=== PATIENT | female | born 1955 | race Caucasian/White ===

== ENCOUNTER → 2018-12-25 | Outpatient (REF) | payer OTHER ==
[~2018-12-25] MED LIST: ALPRAZOLAM0.5 MG PO; APAP/CODEINE1 TAB PO; AUGMENTIN875TAB PO; BUSPIRONE7.5 MG PO; CELEBREX50 MG PO; CELEXA40 M1; CIPRO500 MG OR; CODEINE SULF PO; FLEXERIL PO; GNP ALLERGY-D12 HOUR PO; IBUPROFEN600 MG PO; KETOROLAC60 MG/2 ML IJ; LORTAB 10-325 M1 TAB PO; LORTAB 5 OR; LORTAB 5/3255 MG PO; LOTRISONE CREAM15 GM EX; MEDDOSEPAK PO; MELOXICAM7.5 MG PO; MOTRIN800 MG/TAB PO; NAPROSYN500 MG PO; NAPROXEN375 MG PO; NORCO1 TA1 PO; PAROXETINE10 MG PO; PAROXETINE20 MG PO; PAROXETINE30 MG PO; PERCOCET 5/325M1 TAB PO; SEROQUEL50 MG OR; TRAMADOL HCL100 MG PO; TRAMADOL HCL50 MG PO; TYLENOL # 31 TA1 PO; ULTRAM50 MG PO; VISTARIL25 MG PO; XANAX XR0.5 MG PO; XANAX0.5 MG PO; ZANAFLEX4 MG PO
== END | disposition home or self-care (01) | DRG 951 ==
LOC: MAMMO 12-11 11:30
PROVIDERS: ATTEND Nurse Practitioner Family
DX: Z12.31 Encounter for screening mammogram for malignant neoplasm of breast (principal)

== ENCOUNTER 2020-03-05 20:17 | Observation (INO) | payer MEDICARE, OTHER ==
[~2020-03-05] VITALS: Ht 160 cm; Wt 60.4 kg
[~2020-03-05 20:17] MED LIST changes: +ALPRAZOLAM1 MG PO; +HYDROCO/APAP1 T10 PO
--- NOTE | 2020-03-05 20:34 | NUR ---
PT. WITH C/O EPIGASTRIC PAIN STARTING APPROX 30 MIN AGO. PT STATES SHE ALSO BECAME SOB. SKIN WARM AND DRY TO TOUCH, COLOR WNL, RESP. EVEN AND UNLABORED.
--- NOTE | 2020-03-05 20:56 | NUR ---
IV PAIN MED, PO ASA AND PO GI COCKTAIL GIVEN PER MD ORDER.
[2020-03-05 21:16] LABS: IMMATURE GRANULOCYTES 0.2 % (0.0-5.0); MEAN CORPUSCULAR HGB 31.1 pG CALC (26.0-32.0); MEAN CORPUSCULAR HGB CONC 35.2 g/dL CAL (32.0-36.0); NEUT# 2.81 thou/uL (2.00-7.15); RED BLOOD COUNT 3.66 mill/uL (4.20-5.60); RED CELL DISTRI WIDTH 12.6 % (11.5-15.5)
[2020-03-05 21:17] LABS: HEMATOCRIT 32.4 % (37.0-47.0); HEMOGLOBIN 11.4 g/dl (12.0-16.0); MEAN CELL VOLUME 88.5 fL CALC (80.0-100.0)
[2020-03-05 21:36] LABS: ALBUMIN 4.3 g/dL (3.2-5.0); ALKALINE PHOSPHATASE 62 u/l (38-126); AMYLASE 55 u/l (30-110); BUN 17 mg/dL (8-23); BUN/CREATININE RATIO 20 (12-20 (CALC)); CARBON DIOXIDE 26 mmol/l (22-30); CHLORIDE 94 mmol/l (95-108); CREATININE 0.8 mg/dL (0.5-1.0); GFR > 60 ML/MIN (>=60 (CALC)); GFR FOR AFR.AMER. > 60 ML/MIN (>=60 (CALC)); LIPASE 53 u/l (23-300); POTASSIUM 4.2 mmol/l (3.5-5.1); SGOT/AST 24 u/l (9-36); TOTAL PROTEIN 6.9 g/dL (6.3-8.2)
[2020-03-05 21:40] LABS: ANION GAP 12 (6-22 (CALC)); BILIRUBIN, TOTAL 0.2 mg/dL (0.0-1.4); SODIUM 128 mmol/l (137-146)
[2020-03-05 21:42] LABS: ACT PARTIAL THROMBO TIME 31.4 SECONDS (20.0-32.5)
[2020-03-05 21:47] LABS: MYOGLOBIN 33 ng/mL (0 - 62)
[2020-03-05 21:48] LABS: D-DIMER 0.26 mg/L (0.19-0.60)
--- NOTE | 2020-03-05 21:48 | NUR ---
PT. STATES SHE FEELS PAIN RELIF A 3 ON A SCALE OF 1-10
--- NOTE | 2020-03-05 22:07 | NUR ---
MD IN ROOM TO DISCUSS CLINICAL FINDINGS WITH PT. VERBALIZED UNDERSTANDING. PT. ALSO MADE AWARE OF ADMISSION, VERBALIZED UNDERSTANDING.
--- NOTE | 2020-03-05 22:14 | NUR ---
IV ANTIEMETIC GIVEN PER MD ORDER.
--- NOTE | 2020-03-05 22:30 | NUR ---
Admission Note Report Given to: CHIQUIS ESTEBAN Transported by: Wheelchair X Stretcher Transported with: X Nurse Transporter X Patent IV O2 X Metal Neutralizer Location: ICU X [facility]
--- NOTE | 2020-03-05 22:35 | NUR ---
PT. TAKEN TO [place] FLOOR VIA STRETCHER, NO C/O.
--- NOTE | 2020-03-05 22:40 | NUR ---
PT ARRIVED TO ROOM VIA WHEELCHAIR ACCOMPAINED BY ER STAFF. PT ALERT AND ORIENTED. DENIES ANY PAIN OR DISCOMFORT AT THIS TIME. NO APPARENT DISTRESS. IV SITE APPEARS HEALTHY. 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 PT ORIENTED TO ROOM AND CALL LIGHT SYSTEM. DISCUSSED POC. PT VERBALIZED UNDERSTANDING. CALL LIGHT WITHIN REACH. WILL CONTINUE TO MONITOR.
[2020-03-05 22:52] VITALS: BP 149/71
[2020-03-06 03:35] VITALS: BP 131/80
--- NOTE | 2020-03-06 03:42 | NUR ---
PT CONTINUES TO C/O OF EPIGASTRIC PAIN AND SOB AFTER BEING MEDICATED WITH PRN MEDICATIONS ORDERED. VS 131/80, 63, 20, 99% RA. PT VERY ANXIOUS. NOTIFIED ER PHYSICIAN OF PT S/S, SECOND TROP NEGATIVE. ORDERS RECEIVED FOR ANXIETY AT THIS TIME. WILL MEDICATE WHEN AVAILABLE AND CONTINUE TO MONITOR.
--- NOTE | 2020-03-06 04:36 | NUR ---
PT RESTING IN BED WITH EYES CLOSED. NO APPARENT DISTRESS NOTED. CALL LIGHT WITHIN REACH. WILL CONTINUE TO MONITOR.
[2020-03-06 05:32] VITALS: BP 117/77
--- NOTE | 2020-03-06 07:59 | NUR ---
REPORT RECEIVED FROM CARLITO SIM. PT SITTING UP IN BED EATING BREAKFAST; ALERT AND OREINTED. DENIES CHEST PAIN AND ANXIETY. REPORTS THAT ATIVAN WAS EFFECTIVE FOR ANXIETY. RESPIRATIONS EVEN AND UNLABORED ON ROOM AIR. VSS. BP 140/71. TELE ON. IV SITE APPEARS HEALTHY AND FLUSHES. PLAN OF CARE REVIEWED. PT ENCOURAGED TO VERBALIZE CONCERNS. STATES UNDERSTANDING. SAFETY MEASURES IN PLACE. CALL LIGHT WITHIN REACH.
[2020-03-06 08:00] VITALS: BP 140/71
--- NOTE | 2020-03-06 10:35 | NUR ---
PROTONIX GIVEN. PT C/O 02/07 LEFT SIDED STABBING CHEST PAIN. APPEARS RELAXED AND IN NO DISTRESS. DENIES ANXIETY, BUT IS CONCERNED ABOUT HER XANAX PRESCRIPTION THAT NEEDS TO BE REFILLED TOMORROW. WILL CONTINUE TO MONITOR.
--- NOTE | 2020-03-06 10:54 | NUR ---
DR. MENDOZA AT BEDSIDE.
[2020-03-06 10:55] VITALS: BP 120/69
[2020-03-06] MEDS ORDERED: PANTOPRAZOLE SO40 M1 PO (10:59)
[2020-03-06 11:23] LABS: ANION GAP 10 (6-22 (CALC)); BUN 15 mg/dL (8-23); BUN/CREATININE RATIO 17 (12-20 (CALC)); CARBON DIOXIDE 25 mmol/l (22-30); CHLORIDE 95 mmol/l (95-108); CREATININE 0.9 mg/dL (0.5-1.0); GFR > 60 ML/MIN (>=60 (CALC)); GFR FOR AFR.AMER. > 60 ML/MIN (>=60 (CALC)); POTASSIUM 4.2 mmol/l (3.5-5.1); SODIUM 126 mmol/l (137-146)
[2020-03-06 12:10] LABS: CHOLESTEROL HDL RATIO 3.2 (<4.4 (CALC))
--- NOTE | 2020-03-06 12:36 | NUR ---
IV site discontinued, cath intact. No edema , no redness, voices no discomfort.
--- NOTE | 2020-03-06 12:40 | NUR ---
Discharge instructions given. Patient verbalizes understanding of same. Discharged in stable condition via Wheelchair to Home with friend. All belongings sent with pt.
== END 2020-03-06 12:45 | disposition home or self-care (01) ==
LOC: ED 20:17 → ED-I 22:00 → ED 22:11 → MS2 22:12
PROVIDERS: Family Medicine; Nurse Practitioner Family; ADMIT Internal Medicine; ATTEND Internal Medicine
DX: R10.13 Epigastric pain (principal); E87.1 Hypo-osmolality and hyponatremia; F41.9 Anxiety disorder, unspecified; M47.9 Spondylosis, unspecified; F17.200 Nicotine dependence, unspecified, uncomplicated; R07.9 Chest pain, unspecified; R06.02 Shortness of breath
CPT/HCPCS: G0378; J1650; J2060